=== PATIENT | female | born 1995 | race Caucasian/White ===

== ENCOUNTER 2017-06-08 12:02 | Emergency (ER) | payer OTHER ==
[2017-06-08] MEDS ORDERED: HALOPERIDOL LACT 5 MG/ML INJ IV ONE (12:38)
[2017-06-08] MEDS ORDERED: LORazepam 2 MG/ML INJ IVP ONE (12:39)
[2017-06-08] MEDS ORDERED: HALOPERIDOL LACT 5 MG/ML INJ ONE (12:41)
[2017-06-08] MEDS ORDERED: LORazepam 2 MG/ML INJ ONE (12:41)
[2017-06-08] MEDS ORDERED: NS 1,000 ML IV ONE ×3 (12:42→13:20)
--- NOTE | 2017-06-08 12:42 | EDPHY ---
H & P Time Seen by Provider: 06/08/17 12:34 HPI/ROS: CHIEF COMPLAINT: Vomiting and diarrhea HISTORY OF PRESENT ILLNESS: 21-year-old woman has a history of cyclic vomiting and was last in emergency department 4 years ago. 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 Last night she had a couple drinks with friends. This morning at 6:00 a.m. She had multiple episodes of vomiting with some diarrhea. Symptoms severe worse with any oral intake. Associated with breathing fast, hyperventilation and tingling in her hands. Not associated with melena or hematemesis. She says this is identical to previous episodes. REVIEW OF SYSTEMS: Eye: no change in vision ENT: Mild sore throat, no ear symptoms Cardiac: no chest pain or syncope Pulmonary: no cough or SOB Abdomen: HPI Musculoskeletal: no back pain Skin: no rash Neuro: no headache Constitutional: no fever : no urinary or vaginal symptoms A comprehensive 10 point review of systems is otherwise negative aside from elements mentioned in the history of present illness. PAST MEDICAL HISTORY: Cyclic vomiting, no previous surgeries. Denies . Social history: Alcohol last night, college student General Appearance: Alert and conversant, cooperative. Eyes: No scleral icterus. ENT, Mouth: Dry mucous membranes Respiratory: Normal respiratory effort, breath sounds equal, lungs are clear to auscultation. Cardiovascular: Regular rate and rhythm. Gastrointestinal: Abdomen is soft and non tender. No rebound or guarding and specifically no McBurney's point tenderness. Neurological: Alert, face symmetric, normal motor and sensory in extremities. Skin: Warm and dry, no rashes. Musculoskeletal: No peripheral edema. Psychiatric: Appears very anxious, hyperventilating. Emergency Department course/MDM: Normal saline 2 L IV given for dehydration and nausea and vomiting, labs to include chemistry and . Haldol 2.5 mg IV, Benadryl 25 mg IV, Ativan 0.5 mg IV. 1302: Labs reviewed including low venous CO2 of 14 consistent with dehydration , white blood cell count 26500. Sodium 145, negative. Patient sleeping quietly, no vomiting at this time. 1450: Patient awakened, says"I feel great"and wants to try oral fluids, clinically stable for discharge. Smoking Status: Never smoked Constitutional: Initial Vital Signs Temperature (C) 36.4 C 06/08/17 12:05 Heart Rate 59 L 06/08/17 12:05 Respiratory Rate 18 06/08/17 12:05 Blood Pressure 118/84 H 06/08/17 12:05 O2 Sat (%) 100 06/08/17 12:05 O2 Delivery Mode Room Air Allergies/Adverse Reactions: No Known Allergies Allergy (Unverified 06/08/17 12:05) Home Medications: Medication Instructions Recorded Zoloft 100mg (*) 06/08/17 Medical Decision Making Differential Diagnosis: Differential diagnosis considered for nausea and vomiting including but not limited to UTI, gastroenteritis, gastritis, appendicitis, and medication side effect. - Data Points Laboratory Results: Laboratory Results 06/08/17 12:33 06/08/17 12:33 06/08/17 06/08/17 06/08/17 12:33 12:33 12:33 WBC 10.14 10^3/uL H 10^3/uL (3.80-9.50) RBC 4.84 10^6/uL 10^6/uL (4.18-5.33) Hgb 15.6 g/dL g/dL (12.6-16.3) Hct 42.8 % % (38.0-47.0) MCV 88.4 fL fL (81.5-99.8) MCH 32.2 pg pg (27.9-34.1) MCHC 36.4 g/dL g/dL (32.4-36.7) RDW 11.3 % L % (11.5-15.2) Plt Count 271 10^3/uL 10^3/uL (150-400) MPV 11.4 fL fL (8.7-11.7) Neut % (Auto) 76.4 % H % (39.3-74.2) Lymph % (Auto) 17.9 % % (15.0-45.0) [place] % (Auto) 5.0 % % (4.5-13.0) Eos % (Auto) 0.0 % L % (0.6-7.6) Baso % (Auto) 0.2 % L % (0.3-1.7) Nucleat RBC Rel Count 0.0 % % (0.0-0.2) Absolute Neuts (auto) 7.75 10^3/uL H 10^3/uL (1.70-6.50) Absolute Lymphs (auto) 1.81 10^3/uL 10^3/uL (1.00-3.00) Absolute Monos (auto) 0.51 10^3/uL 10^3/uL (0.30-0.80) Absolute Eos (auto) 0.00 10^3/uL L 10^3/uL (0.03-0.40) Absolute Basos (auto) 0.02 10^3/uL 10^3/uL (0.02-0.10) Absolute Nucleated RBC 0.00 10^3/uL 10^3/uL (0-0.01) Immature Gran % 0.5 % % (0.0-1.1) Immature Gran # 0.05 10^3/uL 10^3/uL (0.00-0.10) Sodium 145 mEq/L mEq/L (135-145) Potassium 3.7 mEq/L mEq/L (3.5-5.2) Chloride 108 mEq/L mEq/L (97-110) Carbon Dioxide 14 mEq/l L mEq/l (22-31) Anion Gap 23 mEq/L H mEq/L (8-16) BUN 10 mg/dL mg/dL (7-23) Creatinine 0.6 mg/dL mg/dL (0.6-1.0) Estimated GFR > 60 Glucose 143 mg/dL H mg/dL (70-100) Calcium 10.8 mg/dL H mg/dL (8.5-10.4) Phosphorus 3.2 mg/dL mg/dL (2.5-4.5) Beta HCG, Qual NEGATIVE Medications Given: Discontinued Medications Diphenhydramine HCl (Benadryl Injection) 25 mg IVP EDNOW ONE Stop: 06/08/17 12:40 Last Admin: 06/08/17 12:46 Dose: 25 mg Haloperidol Lactate (Haldol Injection) 2.5 mg IV EDNOW ONE Stop: 06/08/17 12:39 Last Admin: 06/08/17 12:46 Dose: 2.5 mg Sodium Chloride (Ns) 1,000 mls @ 0 mls/hr IV EDNOW ONE; Wide Open PRN Reason: Protocol Stop: 06/08/17 12:43 Last Admin: 06/08/17 12:46 Dose: 1,000 mls Sodium Chloride (Ns) 1,000 mls @ 0 mls/hr IV EDNOW ONE; Wide Open PRN Reason: Protocol Stop: 06/08/17 12:43 Last Admin: 06/08/17 12:47 Dose: 1,000 mls Sodium Chloride (Ns) 1,000 mls @ 0 mls/hr IV EDNOW ONE; Wide Open PRN Reason: Protocol Stop: 06/08/17 13:21 Last Admin: 06/08/17 13:31 Dose: 1,000 mls Lorazepam (Ativan Injection) 0.5 mg IVP EDNOW ONE Stop: 06/08/17 12:40 Last Admin: 06/08/17 12:46 Dose: 0.5 mg Departure - Departure Disposition: Home, Routine, Self-Care Clinical Impression: Dehydration Nausea & vomiting Qualifiers: Vomiting type: unspecified Vomiting Intractability: non-intractable Qualified Code(s): R11.2 - Nausea with vomiting, unspecified Condition: Good Instructions: Acute Nausea and Vomiting (ED) Referrals: [facility] [Clinic] - As per Instructions Kathleen Oliver DO [Doctor of Osteopathy] - As per Instructions
[2017-06-08 12:47] LABS: PLATELET COUNT 271 10^3/uL (150-400)
[2017-06-08 15:19] VITALS: BP 101/58; PULSE 76; RESP 16; TEMP 97.9; O2SAT 97
== END 2017-06-08 15:22 | disposition home or self-care (01) ==
DX: E86.0 Dehydration (principal); R11.2 Nausea with vomiting, unspecified; E86.9 Volume depletion, unspecified
CPT/HCPCS: 96374; J1200; J1630; J2060